=== PATIENT | male | born 2000 | race Caucasian/White ===

== ENCOUNTER 2018-10-19 11:14 | Emergency (ER) | payer BC ==
[~2018-10-19] VITALS: Ht 172.7 cm; Wt 67.8 kg
[2018-10-19 11:25] VITALS: BP 122/85; PULSE 60
[2018-10-19 13:21] LABS: COLLECTION METHOD CLEAN CATCH
[2018-10-19 13:27] LABS: BASO % 0.7 % (0.0-2.0); EOS # 0.1 (0.0-0.7); EOS % 1.5 % (0-4.0); GRAN # 2.6 (1.4-6.5); GRAN % 56.3 % (42.2-75.2); HEMATOCRIT 44.8 % (36.0-47.0); HEMOGLOBIN 15.6 g/dl (12.5-16.1); LYMPH # 1.6 (1.2-3.4); LYMPH % 33.9 % (20.0-51.0); MEAN CELL VOLUME 88 fl (80.0-95.0); MEAN CORPUSCULAR HEMOGLOBIN 31 pg (26.0-32.0); MEAN CORPUSCULAR HGB CONC 35 g/dl (33.0-37.0); MONO # 0.3 (0.1-0.6); MONO % 7.4 % (1.7-9.3); PLATELET COUNT 241 K/mm3 (130-400); REDCELL DISTRIBUTION WIDTH-CV 11.8 % (11.5-14.5)
[2018-10-19 13:33] LABS: MUCOUS Present /lpf; PH 6 (5-8); SQUAMOUS EPITHELIAL None Seen /hpf; URINE APPEARANCE Clear; URINE BACTERIA None Seen /hpf; URINE BILIRUBIN Negative (NEGATIVE); URINE BLOOD 1+ (NEGATIVE); URINE COLOR Yellow; URINE GLUCOSE Negative (NEGATIVE); URINE KETONE Negative (NEGATIVE); URINE LEUKOCYTE ESTERASE Negative (NEGATIVE); URINE NITRATE Negative (NEGATIVE); URINE PROTEIN(semi-quant) Negative (NEGATIVE); URINE UROBILINOGEN Negative (NEGATIVE)
[2018-10-19 13:41] LABS: ALBUMIN 4.7 gm/dL (3.5-5.0); BILIRUBIN,TOTAL 0.5 mg/dL (0.0-1.0); CALCIUM 9.9 mg/dL (8.4-10.2); CREATININE, serum 0.71 mg/dL (0.66-1.25)
[2018-10-19 13:43] LABS: TRICYCLIC ANTIDEPRESS URINE NEGATIVE
[2018-10-19 14:11] LABS: TSH w REFLEX 1.75 uIU/mL (0.465-4.680)
[2018-10-19 15:02] VITALS: TEMP 98
== END 2018-10-19 15:00 | disposition home or self-care (01) ==
LOC: COL.ER 11:14
PROVIDERS: Physician Assistant
DX: F41.1 Generalized anxiety disorder (principal); F15.93 Other stimulant use, unspecified with withdrawal; F17.213 Nicotine dependence, cigarettes, with withdrawal; F12.10 Cannabis abuse, uncomplicated

== ENCOUNTER → 2018-11-23 | Outpatient (CLI) | payer BC | LOC: COL.RAD 14:32 | DX: R41.0 Disorientation, unspecified (principal); R51 Headache; R42 Dizziness and giddiness | CPT/HCPCS: A9585 ==